=== PATIENT | female | born 2000 | race Two or more races ===

== ENCOUNTER 2024-06-26 12:27 | Emergency (ER) | payer SELFPAY ==
[~2024-06-26] VITALS: Ht 167.6 cm; Wt 56.2 kg
[2024-06-26 12:51] VITALS: BP 119/88; PULSE 84; RESP 16; TEMP 97.7; O2SAT 100
== END 2024-06-26 13:12 | disposition home or self-care (01) ==
LOC: ER 12:27
DX: T45.2X5A Adverse effect of vitamins, initial encounter (principal); F17.210 Nicotine dependence, cigarettes, uncomplicated; Y92.89 Other specified places as the place of occurrence of the external cause